=== PATIENT | male | born 1930 | race Caucasian/White ===

== ENCOUNTER 2019-03-10 02:45 | Inpatient (IN) | payer MEDICARE ==
[~2019-03-10] VITALS: Ht 175.3 cm; Wt 87.5 kg
[2019-03-10] VITALS (12 sets, daily range): BP systolic 118–202; BP diastolic 59–112
[2019-03-10] MEDS ORDERED: Aspirin Baby 81mg ORAL ONE (03:00)
[2019-03-10] MEDS ORDERED: Solu-MEDROL 125mg Inj IVP ONE (03:00)
[2019-03-10] MEDS ORDERED: Albuterol/Ipratropium 3ml neb HHN ONE (03:00)
[2019-03-10] MEDS ORDERED: Nitroglycerin Subl 0.4mg tab SL PRN ×2 (03:00→08:00)
--- NOTE | 2019-03-10 03:00 | NUR ---
ED Nurse Note: Pt came from home c/o chest pain and difficulty breathing since 1 hr. Pt stated pain in mid sternal area. Denies trauma. Wheezes heard. O2 >95% RA. Pt placed on monitor.
[2019-03-10 03:03] LABS: BASOPHILS % (AUTO) 0.7 % (0.0-2.0); EOSINOPHILS % (AUTO) 2.1 % (0.0-3.0); HEMATOCRIT 49.4 % (42.0-52.0); HEMOGLOBIN 15.8 G/DL (14.2-18.0); LYMPHOCYTES % (AUTO) 21.8 % (20.0-45.0); MEAN CORPUSCULAR VOLUME 92 FL (80-99); MONOCYTES % (AUTO) 7.8 % (1.0-10.0); NEUTROPHILS % (AUTO) 67.6 % (45.0-75.0); PLATELET COUNT 221 K/UL (150-450); RED CELL DISTRIBUTION WIDTH 13.5 % (11.6-14.8); WHITE BLOOD COUNT 10.9 K/UL (4.8-10.8)
--- NOTE | 2019-03-10 03:13 | Emergency Room Report ---
History of Present Illness General Chief Complaint: Chest Pain Source: Patient Present Illness HPI Patient is an 88-year-old male who presented after increased chest discomfort and shortness of breath. Patient had acute onset of symptoms approximate 1 hour prior to arrival. He had been noted to have increased nausea as well as chest tightness. He had some prior history of dementia. 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 He had no prior history of congestive heart failure or heart attack in the past. Patient had abrupt onset of shortness of breath Allergies: Coded Allergies: No Known Allergies (Unverified , 03/10/19) Patient History Past Medical History: see triage record Reviewed Nursing Documentation: PMH: Agreed; PSxH: Agreed Nursing Documentation-PMH Hx Cardiac Problems: Yes Hx Hypertension: Yes Hx COPD: Yes Review of Systems All Other Systems: limited - by acuity Physical Exam Vital Signs Date Time Temp Pulse Resp B/P (MAP) Pulse Ox O2 Delivery O2 Flow Rate FiO2 03/10/19 02:52 98.4 120 22 202/112 (142) 96 Room Air 03/10/19 03:00 2.0 28 General Appearance: alert, severe distress, obese Eyes: bilateral eye PERRL ENT: uvula midline Neck: limited range of motion Respiratory: accessory muscle use, wheezing Cardiovascular #1: tachycardia, edema - trace Gastrointestinal: normal inspection, normal bowel sounds, non tender, soft Musculoskeletal: normal inspection Neurologic: normal inspection, alert, oriented x3 Procedures Critical Care Time Critical Care Time Patient had a critical medical condition which untreated could potentially result in life or limb threatening injury. Total critical care time excluding procedures approximately 45 minutes. Medical Decision Making Diagnostic Impression: Primary Impression: Chest pain Additional Impressions: LBBB (left bundle branch block) Acute on chronic systolic (congestive) heart failure ER Course Patient presented for chest pain and shortness of breath. Differential diagnosis include was not limited to pneumonia, hypertensive crisis, acute myocardial infarction, congestive heart failure among others. Because of complexity of patient's case laboratory testing and imaging studies were ordered. EKG interpreted by me showed sinus tachycardia with a rate of 105 with a left bundle branch block pattern and ST elevation in the anterior leads. Patient was noted to be initially hypertensive. He is given aspirin. He was given breathing treatments due to some wheezing and difficulty respiration as well as IV steroids.Patient started on IV Lasix. Chest x-ray one view interpreted by me showed normal cardiac size with bilateral vascular congestion. Patient was noted to be initially markedly hypertensive. This improved after nitroglycerin and aspirin.Patient was also noted to have some improvement in his shortness of breath at that time. Patient was started on supplemental oxygen. Dr. Jessee Garcia was contacted for inpatient management due to panel physician. Labs Test 03/10/19 09:00 03/11/19 04:07 03/12/19 06:10 03/12/19 15:05 Urine Color Pale yellow Pale yellow Urine Appearance Clear Clear Urine pH 5 (4.5-8.0) 5 (4.5-8.0) Urine Specific [place] 1.010 (1.005-1.035) 1.005 (1.005-1.035) Urine Protein Negative (NEGATIVE) Negative (NEGATIVE) Urine Glucose (UA) Negative (NEGATIVE) Negative (NEGATIVE) Urine Ketones Negative (NEGATIVE) Negative (NEGATIVE) Urine Blood Negative (NEGATIVE) Negative (NEGATIVE) Urine Nitrite Negative (NEGATIVE) Negative (NEGATIVE) Urine Bilirubin Negative (NEGATIVE) Negative (NEGATIVE) Urine Urobilinogen Normal MG/DL (0.0-1.0) Normal MG/DL (0.0-1.0) Urine Leukocyte Esterase Negative (NEGATIVE) Negative (NEGATIVE) Urine RBC 0 /HPF (0 - 0) 0-2 /HPF (0 - 0) Urine WBC 0-2 /HPF (0 - 0) 0-2 /HPF (0 - 0) Urine Squamous Epithelial Cells Occasional /LPF None /LPF (NONE/OCC) Urine Bacteria Occasional /HPF (NONE) Few /HPF (NONE) Urine Eosinophils None seen (NONE SEEN) None seen (NONE SEEN) Urine Osmolality 368 mOsm/kg (429-449) 290 mOsm/kg (429-449) Urine Random Sodium 97 mmol/L (20-110) 68 mmol/L (20-110) White Blood Count 11.8 K/UL (4.8-10.8) 12.3 K/UL (4.8-10.8) Red Blood Count 4.93 M/UL (4.70-6.10) 4.68 M/UL (4.70-6.10) Hemoglobin 14.6 G/DL (14.2-18.0) 13.9 G/DL (14.2-18.0) Hematocrit 44.8 % (42.0-52.0) 42.7 % (42.0-52.0) Mean Corpuscular Volume 91 FL (80-99) 91 FL (80-99) Mean Corpuscular Hemoglobin 29.6 PG (27.0-31.0) 29.7 PG (27.0-31.0) Mean Corpuscular Hemoglobin Concent 32.6 G/DL (32.0-36.0) 32.5 G/DL (32.0-36.0) Red Cell Distribution Width 12.9 % (11.6-14.8) 13.3 % (11.6-14.8) Platelet Count 208 K/UL (150-450) 221 K/UL (150-450) Mean Platelet Volume 6.4 FL (6.5-10.1) 7.0 FL (6.5-10.1) Neutrophils (%) (Auto) % (45.0-75.0) 79.3 % (45.0-75.0) Lymphocytes (%) (Auto) % (20.0-45.0) 11.7 % (20.0-45.0) Monocytes (%) (Auto) % (1.0-10.0) 8.4 % (1.0-10.0) Eosinophils (%) (Auto) % (0.0-3.0) 0.1 % (0.0-3.0) Basophils (%) (Auto) % (0.0-2.0) 0.4 % (0.0-2.0) Differential Total Cells Counted 100 Neutrophils % (Manual) 92 % (45-75) Lymphocytes % (Manual) 6 % (20-45) Monocytes % (Manual) 2 % (1-10) Eosinophils % (Manual) 0 % (0-3) Basophils % (Manual) 0 % (0-2) Band Neutrophils 0 % (0-8) Platelet Estimate Adequate Platelet Morphology Normal Red Blood Cell Morphology Normal Sodium Level 139 MMOL/L (136-145) 141 MMOL/L (136-145) Potassium Level 4.0 MMOL/L (3.5-5.1) 4.1 MMOL/L (3.5-5.1) Chloride Level 104 MMOL/L (98-107) 104 MMOL/L (98-107) Carbon Dioxide Level 27 MMOL/L (21-32) 31 MMOL/L (21-32) Anion Gap 8 mmol/L (5-15) 6 mmol/L (5-15) Blood Urea Nitrogen 41 mg/dL (7-18) 44 mg/dL (7-18) Creatinine 1.6 MG/DL (0.55-1.30) 1.8 MG/DL (0.55-1.30) Estimat Glomerular Filtration Rate mL/min (>60) mL/min (>60) Glucose Level 174 MG/DL (74-106) 118 MG/DL (74-106) Calcium Level 9.0 MG/DL (8.5-10.1) 9.0 MG/DL (8.5-10.1) Total Bilirubin 0.6 MG/DL (0.2-1.0) Aspartate Amino Transf (AST/SGOT) 27 U/L (15-37) Alanine Aminotransferase (ALT/SGPT) 18 U/L (12-78) Alkaline Phosphatase 65 U/L (46-116) Troponin I 0.032 ng/mL (0.000-0.056) Pro-B-Type Natriuretic Peptide 4594 pg/mL (0-125) Total Protein 7.2 G/DL (6.4-8.2) Albumin 3.5 G/DL (3.4-5.0) Globulin 3.7 g/dL Albumin/Globulin Ratio 0.9 (1.0-2.7) Triglycerides Level 64 MG/DL (30-150) Cholesterol Level 251 MG/DL (< 200) LDL Cholesterol 170 mg/dL (<100) HDL Cholesterol 64 MG/DL (40-60) Cholesterol/HDL Ratio 3.9 (3.3-4.4) Uric Acid 8.4 MG/DL (2.6-7.2) Total Creatine Kinase 74 U/L (26-308) EKG Diagnostic Results Rate: tachycardiac Rhythm: NSR ST Segments: other - lef Last Vital Signs Date Time Temp Pulse Resp B/P (MAP) Pulse Ox O2 Delivery O2 Flow Rate FiO2 03/10/19 03:01 119 26 97 Nasal Cannula 2.0 28 03/10/19 02:58 202/112 03/10/19 02:52 98.4 Status: improved Disposition: ADMITTED INPATIENT Condition: Serious Roberto Loera MD Mar 10, 2019 03:13
[2019-03-10 03:14] LABS: ANION GAP 7 mmol/L (5-15); BLOOD UREA NITROGEN 30 mg/dL (7-18); CARBON DIOXIDE 26 MMOL/L (21-32); CHLORIDE 104 MMOL/L (98-107); CREATININE 1.6 MG/DL (0.55-1.30); POTASSIUM 4.3 MMOL/L (3.5-5.1); SODIUM 137 MMOL/L (136-145)
[2019-03-10] MEDS ORDERED: Albuterol/Ipratropium 3ml neb ONE (03:17)
[2019-03-10 03:28] LABS: ALANINE AMINOTRANSFERASE 11 U/L (12-78); ALBUMIN 3.9 G/DL (3.4-5.0); ALKALINE PHOSPHATASE 67 U/L (46-116); ASPARTATE AMINO TRANSFERASE 27 U/L (15-37); BILIRUBIN,TOTAL 0.6 MG/DL (0.2-1.0); CKMB 3.6 NG/ML (0.0-3.6); CREATINE KINASE 202 U/L (26-308)
--- NOTE | 2019-03-10 05:00 | NUR ---
ED Nurse Note: Pt resting in bed with eyes closed, non-labored breathing, no signs of distress, VSS. Will continue to monitor.
--- NOTE | 2019-03-10 06:50 | NUR ---
TRANSFER TO FLOOR: Patient transferred to as ordered, per Dr Garcia. Report given to BHAVESH Salguero. Belongings and medications given to . Family and or S/O informed of transfer.
--- NOTE | 2019-03-10 07:05 | NUR ---
NURSE NOTES: Received patient from BHAVESH Loza from ED. patient is in stable condition. AOx2-3, responsive to verbal commands. denies pain at this time. patient is currently on room air, with no s/sx of respiratory distress noted at this time. rn ostomy placed, showing NSR currently, no s/sx of acute cardiac distress noted at this time. IV site is patent and intact. skin is intact. belongings reviewed and placed at patient's bedside. bed in lowest position and locked, siderails up X3, call light within reach. Vital signs stable. will endorse to day shift nurse for continuity of care.
[2019-03-10] MEDS ORDERED: Morphine Sulfate 2mg/ml Inj(IV/IM USE ONLY) IVP PRN (07:45)
[2019-03-10] MEDS ORDERED: Albuterol/Ipratropium 3ml neb HHN PRN (07:45)
[2019-03-10] MEDS ORDERED: Promethazine/Codeine 5ml UD ORAL PRN (07:45)
[2019-03-10] MEDS ORDERED: LORazepam Inj 2mg/ml 1ml IV PRN (07:45)
--- NOTE | 2019-03-10 07:48 | NUR ---
HAND-OFF: Report given to BHAVESH Barrow. patient is in stable condition.
--- NOTE | 2019-03-10 07:49 | NUR ---
NURSE NOTES: Received patient in bed. Asleep, easy to arouse. Call light within reach, bed in lowest position. Patient is verbal, denies any pain. On room air. No respiratory distress. Will continue plan of care.
[2019-03-10 08:18] LABS: CREATINE KINASE 184 U/L (26-308)
[2019-03-10] MEDS: Theophylline ER 100mg ORAL SCH ×2 (09:22→20:59)
[2019-03-10] MEDS: Heparin 5000 units/ml inj SUBQ SCH ×2 (09:23→20:59)
[2019-03-10] MEDS: Zosyn 3.375gm q12h **Extended infusion IVPB SCH ×4 (09:23→20:58)
[2019-03-10 10:01] LABS: APPEARANCE,URINE CLEAR; BILIRUBIN, URINE NEGATIVE (NEGATIVE); COLOR,URINE PALE YELLOW; GLUCOSE, URINE (UA) NEGATIVE (NEGATIVE); KETONES,URINE NEGATIVE (NEGATIVE); LEUKOCYTE ESTERASE ,URINE NEGATIVE (NEGATIVE); NITRITE,URINE NEGATIVE (NEGATIVE); PH,URINE 5 (4.5-8.0); PROTEIN,URINE NEGATIVE (NEGATIVE); UROBILINOGEN,URINE NORMAL MG/DL (0.0-1.0)
--- NOTE | 2019-03-10 10:29 | Consultation ---
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 Symptoms started about 1 hour prior to arrival to ED. Patient also reported increased nausea with chest tightness. Patient was unable to provide good history secondary to dementia. He denied, however, history of CHF or heart attack in the past. Upon evaluation vital signs revealed tachycardia , tachypnea and severely elevated blood pressure 202/112. Pulse oximetry was stable on 2 L of oxygen via nasal cannula. Laboratory work-up revealed evidence of renal failure with BUN of 30 creatinine 1.6. Troponin 0.006, proBNP 2113. EKG revealed sinus tachycardia with left bundle branch block. No leukocytosis, stable hemoglobin and hematocrit. Urinalysis revealed no evidence of UTI. Chest x-ray demonstrated evidence of congestive heart failure. Patient received aspirin and nitroglycerin in emergency department , nebulizing treatment with bronchodilator, 1 dose of Lasix and admitted to [facility] for further management. Allergies: Coded Allergies: No Known Allergies (Unverified , 03/10/19) Medication History Scheduled Tamsulosin HCl (Flomax), 0 DAILY, (Reported) Miscellaneous Medications Aspirin (Aspirin), 0, (Reported) Citalopram Hydrobromide (Citalopram Hbr), 0, (Reported) Patient History Limited by: medical condition History Provided By: Patient, Medical Record Healthcare decision maker Resuscitation status Advanced Directive on File Past Medical/Surgical History Past Medical/Surgical History: (1) Valvular heart disease (2) COPD (chronic obstructive pulmonary disease) (3) Dementia (4) HTN (hypertension) Review of Systems ROS Narrative ROS unavailable due to patient medical condition/dementia. Physical Exam General Appearance: alert - forgetful male in NAD Lines, tubes and drains: peripheral HEENT: normocephalic, atraumatic, anicteric, mucous membranes moist, PERRL Neck: normal inspection Respiratory/Chest: no respiratory distress, no accessory muscle use, decreased breath sounds Cardiovascular/Chest: normal peripheral pulses, regular rhythm - SR Abdomen: normal bowel sounds, non tender, soft Extremities: no edema Skin Exam: warm/dry, no diaphoresis Neurologic: abnormal gait, alert, responsive - forgetful , other - moves all extremities Musculoskeletal: atrophy - BLE Last 24 Hour Vital Signs Date Time Temp Pulse Resp B/P (MAP) Pulse Ox O2 Delivery O2 Flow Rate FiO2 03/10/19 08:00 97.8 76 20 148/74 (98) 93 03/10/19 07:05 97.8 83 20 138/68 (91) 95 03/10/19 06:50 98.4 96 19 121/63 95 Nasal Cannula 2.0 28 03/10/19 04:53 98.4 96 19 121/63 95 Nasal Cannula 2.0 28 03/10/19 04:30 98.4 102 26 118/65 95 Nasal Cannula 2.0 28 03/10/19 04:25 98.4 112 26 138/59 95 Nasal Cannula 2.0 28 03/10/19 04:20 98.4 98 26 136/64 95 Nasal Cannula 2.0 28 03/10/19 04:15 98.4 100 26 127/61 95 Nasal Cannula 2.0 28 03/10/19 04:10 98.4 105 26 141/96 95 Nasal Cannula 2.0 28 03/10/19 03:20 67 22 95 Nasal Cannula 2.0 28 03/10/19 03:12 96 22 96 Nasal Cannula 2.0 03/10/19 03:01 119 26 97 Nasal Cannula 2.0 03/10/19 03:00 119 26 97 Nasal Cannula 2.0 03/10/19 03:00 98.4 105 26 202/112 97 Nasal Cannula 2.0 03/10/19 03:00 119 26 Nasal Cannula 2.0 03/10/19 02:58 202/112 03/10/19 02:52 98.4 120 22 202/112 (142) 96 Room Air Laboratory Tests Test 03/10/19 02:50 03/10/19 04:40 03/10/19 05:00 03/10/19 09:00 White Blood Count 10.9 K/UL (4.8-10.8) H Red Blood Count 5.40 M/UL (4.70-6.10) Hemoglobin 15.8 G/DL (14.2-18.0) Hematocrit 49.4 % (42.0-52.0) Mean Corpuscular Volume 92 FL (80-99) Mean Corpuscular Hemoglobin 29.3 PG (27.0-31.0) Mean Corpuscular Hemoglobin Concent 32.0 G/DL (32.0-36.0) Red Cell Distribution Width 13.5 % (11.6-14.8) Platelet Count 221 K/UL (150-450) Mean Platelet Volume 6.0 FL (6.5-10.1) L Neutrophils (%) (Auto) 67.6 % (45.0-75.0) Lymphocytes (%) (Auto) 21.8 % (20.0-45.0) Monocytes (%) (Auto) 7.8 % (1.0-10.0) Eosinophils (%) (Auto) 2.1 % (0.0-3.0) Basophils (%) (Auto) 0.7 % (0.0-2.0) Sodium Level 137 MMOL/L (136-145) Potassium Level 4.3 MMOL/L (3.5-5.1) Chloride Level 104 MMOL/L (98-107) Carbon Dioxide Level 26 MMOL/L (21-32) Anion Gap 7 mmol/L (5-15) Blood Urea Nitrogen 30 mg/dL (7-18) H Creatinine 1.6 MG/DL (0.55-1.30) H Estimat Glomerular Filtration Rate mL/min (>60) Glucose Level 134 MG/DL (74-106) H Calcium Level 9.0 MG/DL (8.5-10.1) Total Bilirubin 0.6 MG/DL (0.2-1.0) Aspartate Amino Transf (AST/SGOT) 27 U/L (15-37) Alanine Aminotransferase (ALT/SGPT) 11 U/L (12-78) L Alkaline Phosphatase 67 U/L (46-116) Total Creatine Kinase 202 U/L (26-308) 184 U/L (26-308) Creatine Kinase MB 3.6 NG/ML (0.0-3.6) Creatine Kinase MB Relative Index 1.7 Troponin I 0.006 ng/mL (0.000-0.056) 0.007 ng/mL (0.000-0.056) Pro-B-Type Natriuretic Peptide 2113 pg/mL (0-125) H Total Protein 7.7 G/DL (6.4-8.2) Albumin 3.9 G/DL (3.4-5.0) Globulin 3.8 g/dL Albumin/Globulin Ratio 1.0 (1.0-2.7) Lipase 221 U/L (73-393) Uric Acid 8.9 MG/DL (2.6-7.2) H Urine Color Pale yellow Urine Appearance Clear Urine pH 5 (4.5-8.0) Urine Specific [place] 1.010 (1.005-1.035) Urine Protein Negative (NEGATIVE) Urine Glucose (UA) Negative (NEGATIVE) Urine Ketones Negative (NEGATIVE) Urine Blood Negative (NEGATIVE) Urine Nitrite Negative (NEGATIVE) Urine Bilirubin Negative (NEGATIVE) Urine Urobilinogen Normal MG/DL (0.0-1.0) Urine Leukocyte Esterase Negative (NEGATIVE) Urine RBC 0 /HPF (0 - 0) Urine WBC 0-2 /HPF (0 - 0) Urine Squamous Epithelial Cells Occasional /LPF Urine Bacteria Occasional /HPF (NONE) Urine Eosinophils Pending Urine Osmolality Pending Urine Random Creatinine Pending Urine Random Microalbumin Pending Urine Random Sodium 97 mmol/L (20-110) Urine Microalbumin/Creatinine Ratio Pending Height (Feet): 5 Height (Inches): 9.00 Weight (Pounds): 170 Medications Current Medications Medications (Trade) Dose Ordered Sig/Barbara Route PRN Reason Start Time Stop Time Status Last Admin Dose Admin Albuterol/ Ipratropium (Albuterol/ Ipratropium) 3 ml Q4H PRN HHN dyspnea 03/10/19 07:45 03/15/19 07:44 Dextrose (Dextrose 50%) 25 ml Q30M PRN IV Hypoglycemia 03/10/19 07:45 04/09/19 07:44 Dextrose (Dextrose 50%) 50 ml Q30M PRN IV Hypoglycemia 03/10/19 07:45 04/09/19 07:44 Heparin Sodium (Porcine) (Heparin 5000 units/ml) 5,000 units EVERY 12 HOURS SUBQ 03/10/19 09:00 04/09/19 08:59 03/10/19 09:23 Lorazepam (Ativan 2mg/ml 1ml) 0.5 mg Q4H PRN IV For Anxiety 03/10/19 07:45 03/17/19 07:44 Methylprednisolone Sodium Succinate (Solu-MEDROL) 60 mg EVERY 6 HOURS IV 03/10/19 12:00 04/09/19 11:59 Morphine Sulfate (Morphine Sulfate) 2 mg Q4H PRN IVP Severe Pain (Pain Scale 7-10) 03/10/19 07:45 03/17/19 07:44 Nitroglycerin (Ntg) 0.4 mg Q5MIN X 3 DOSES PRN SL Prn Chest Pain 03/10/19 08:00 04/09/19 07:59 Ondansetron HCl (Zofran) 4 mg Q6H PRN IVP Nausea & Vomiting 03/10/19 07:45 04/09/19 07:44 Piperacillin Sod/ Tazobactam Sod 3.375 gm/Sodium Chloride 110 ml @ 27.5 mls/hr EVERY 12 HOURS IVPB 03/10/19 09:00 03/15/19 08:59 03/10/19 09:23 Promethazine HCl/ Codeine (Phenergan with Codeine) 5 ml Q6H PRN ORAL cough 03/10/19 07:45 04/09/19 07:44 Temazepam (Restoril) 15 mg HSPRN PRN ORAL Insomnia 03/10/19 21:00 03/17/19 20:59 Theophylline (Zhao-Dur) 100 mg EVERY 12 HOURS ORAL 03/10/19 09:00 04/09/19 08:59 03/10/19 09:22 Assessment/Plan Status Narrative ASSESSMENT Chest pain, rule out acute coronary syndrome Hypertensive urgency( POA, resolved) Probably COPD exacerbation R/o PNA Valvular heart disease due to rheumatic fever Acute kidney injury Dementia PLAN OF CARE Serial troponin x2 negative, EKG no acute ischemic changes patient was r/o for acute ME started on aspirin and beta-robert closely monitor BP ECHO pending lipid panel pain management O2 titrate prn, HHN low-dose of steroids and taper soon antitussive prn fup with CXR empiric abx, f/up with cx trial of theophylline DVT , GI prophylaxis monitor renal parameters , electrolytes; correct electrolytes as needed, void nephrotoxic renal US transfer to tele case discussed and evaluated by supervising physician Corazon Kumar NP Mar 10, 2019 10:29
--- NOTE | 2019-03-10 10:50 | Diagnostic Imaging Report ---
Indication: Dyspnea Comparison: None A single view chest radiograph was obtained. Findings: Pulmonary vascular congestion demonstrated with cardiomegaly. No definite pleural effusions are identified. The bones are osteopenic. IMPRESSION: Congestive heart failure
--- NOTE | 2019-03-10 11:35 | Diagnostic Imaging Report ---
Indication:Elevated Bun and Creatinine. Technique: Grayscale and duplex Doppler imaging of the kidneys performed. Comparison: None Findings: There is some limitation on this study due to bowel gas. The size, contour, and echogenicity of both kidneys are within normal limits. There is no hydronephrosis. The IVC is patent by color flow. The urinary bladder is distended. Right kidney measures 11.7 cm in length. Left kidney 8.5 cm in length. IMPRESSION: Negative evaluation of the kidneys. Left kidney is borderline small. Distended urinary bladder
--- NOTE | 2019-03-10 11:48 | NUR ---
NURSE NOTES: Spoke with patient's son via telephone, and he said that patient's medications at home are Flomax, ASA and citalopram.
[2019-03-10] MEDS ORDERED: Solu-MEDROL 125mg Inj IV SCH (12:00)
--- NOTE | 2019-03-10 12:30 | NUR ---
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 Documented on patient's belongings list.
--- NOTE | 2019-03-10 13:00 | NUR ---
NURSE NOTES: Dr. Dotson made aware regarding patient's 2D echo result, EF of 25-30%. Dr. Dotson said he will asses patient and check the chart.
[2019-03-10] MEDS ORDERED: Piperacillin/Tazobactam 2.25 GM in D5W 55 ML IV SCH (14:00)
--- NOTE | 2019-03-10 14:36 | Cardiac Electrophysiology PN ---
Subjective Subjective [id number] Objective Last 24 Hour Vital Signs Date Time Temp Pulse Resp B/P (MAP) Pulse Ox O2 Delivery O2 Flow Rate FiO2 03/10/19 12:00 97.7 80 20 140/86 (104) 94 03/10/19 11:35 72 03/10/19 08:00 97.8 76 20 148/74 (98) 93 03/10/19 08:00 75 03/10/19 07:53 Room Air 03/10/19 07:05 97.8 83 20 138/68 (91) 95 03/10/19 06:50 98.4 96 19 121/63 95 Nasal Cannula 2.0 28 03/10/19 04:53 98.4 96 19 121/63 95 Nasal Cannula 2.0 28 03/10/19 04:30 98.4 102 26 118/65 95 Nasal Cannula 2.0 28 03/10/19 04:25 98.4 112 26 138/59 95 Nasal Cannula 2.0 28 03/10/19 04:20 98.4 98 26 136/64 95 Nasal Cannula 2.0 28 03/10/19 04:15 98.4 100 26 127/61 95 Nasal Cannula 2.0 28 03/10/19 04:10 98.4 105 26 141/96 95 Nasal Cannula 2.0 28 03/10/19 03:20 67 22 95 Nasal Cannula 2.0 28 03/10/19 03:12 96 22 96 Nasal Cannula 2.0 28 03/10/19 03:01 119 26 97 Nasal Cannula 2.0 28 03/10/19 03:00 119 26 97 Nasal Cannula 2.0 28 03/10/19 03:00 98.4 105 26 202/112 97 Nasal Cannula 2.0 28 03/10/19 03:00 119 26 Nasal Cannula 2.0 28 03/10/19 02:58 202/112 03/10/19 02:52 98.4 120 22 202/112 (142) 96 Room Air Laboratory Tests Test 03/10/19 02:50 03/10/19 04:40 03/10/19 05:00 03/10/19 09:00 White Blood Count 10.9 K/UL (4.8-10.8) H Red Blood Count 5.40 M/UL (4.70-6.10) Hemoglobin 15.8 G/DL (14.2-18.0) Hematocrit 49.4 % (42.0-52.0) Mean Corpuscular Volume 92 FL (80-99) Mean Corpuscular Hemoglobin 29.3 PG (27.0-31.0) Mean Corpuscular Hemoglobin Concent 32.0 G/DL (32.0-36.0) Red Cell Distribution Width 13.5 % (11.6-14.8) Platelet Count 221 K/UL (150-450) Mean Platelet Volume 6.0 FL (6.5-10.1) L Neutrophils (%) (Auto) 67.6 % (45.0-75.0) Lymphocytes (%) (Auto) 21.8 % (20.0-45.0) Monocytes (%) (Auto) 7.8 % (1.0-10.0) Eosinophils (%) (Auto) 2.1 % (0.0-3.0) Basophils (%) (Auto) 0.7 % (0.0-2.0) Sodium Level 137 MMOL/L (136-145) Potassium Level 4.3 MMOL/L (3.5-5.1) Chloride Level 104 MMOL/L (98-107) Carbon Dioxide Level 26 MMOL/L (21-32) Anion Gap 7 mmol/L (5-15) Blood Urea Nitrogen 30 mg/dL (7-18) H Creatinine 1.6 MG/DL (0.55-1.30) H Estimat Glomerular Filtration Rate mL/min (>60) Glucose Level 134 MG/DL (74-106) H Calcium Level 9.0 MG/DL (8.5-10.1) Total Bilirubin 0.6 MG/DL (0.2-1.0) Aspartate Amino Transf (AST/SGOT) 27 U/L (15-37) Alanine Aminotransferase (ALT/SGPT) 11 U/L (12-78) L Alkaline Phosphatase 67 U/L (46-116) Total Creatine Kinase 202 U/L (26-308) 184 U/L (26-308) Creatine Kinase MB 3.6 NG/ML (0.0-3.6) Creatine Kinase MB Relative Index 1.7 Troponin I 0.006 ng/mL (0.000-0.056) 0.007 ng/mL (0.000-0.056) Pro-B-Type Natriuretic Peptide 2113 pg/mL (0-125) H Total Protein 7.7 G/DL (6.4-8.2) Albumin 3.9 G/DL (3.4-5.0) Globulin 3.8 g/dL Albumin/Globulin Ratio 1.0 (1.0-2.7) Lipase 221 U/L (73-393) Uric Acid 8.9 MG/DL (2.6-7.2) H Urine Color Pale yellow Urine Appearance Clear Urine pH 5 (4.5-8.0) Urine Specific [place] 1.010 (1.005-1.035) Urine Protein Negative (NEGATIVE) Urine Glucose (UA) Negative (NEGATIVE) Urine Ketones Negative (NEGATIVE) Urine Blood Negative (NEGATIVE) Urine Nitrite Negative (NEGATIVE) Urine Bilirubin Negative (NEGATIVE) Urine Urobilinogen Normal MG/DL (0.0-1.0) Urine Leukocyte Esterase Negative (NEGATIVE) Urine RBC 0 /HPF (0 - 0) Urine WBC 0-2 /HPF (0 - 0) Urine Squamous Epithelial Cells Occasional /LPF Urine Bacteria Occasional /HPF (NONE) Urine Eosinophils None seen (NONE SEEN) Urine Osmolality 368 mOsm/kg (429-449) L Urine Random Creatinine Pending Urine Random Microalbumin Pending Urine Random Sodium 97 mmol/L (20-110) Urine Microalbumin/Creatinine Ratio Pending Eric Dotson MD Mar 10, 2019 14:36
--- NOTE | 2019-03-10 17:15 | History and Physical Report ---
DATE OF ADMISSION: 03/10/2019 DATE AND TIME SEEN: On 03/10/2019 at 12 noon. CONSULTANTS: 1. Nati Jeff M.D. 2. Eric Dotson M.D. CHIEF COMPLAINT: Chest pain, shortness of breath. BRIEF HISTORY: This is an 88-year-old male, who lives at home, presented with increased slight chest pain and slight short of breath. It was dull. No radiation. No loss of consciousness. Slight short of breath. The patient came in, diagnosed with chest pain and left bundle-branch block, and admitted to step-down unit for further care. Currently, calm in bed, slight chest pain, no complaint. REVIEW OF SYSTEMS: Slight chest pain. Slight short of breath. No nausea, vomiting, or diarrhea. PAST MEDICAL HISTORY: Includes CHF. PAST SURGICAL HISTORY: None. ALLERGIES: Denies. MEDICATIONS: Include aspirin, pantoprazole, temazepam, methylprednisolone, metoprolol, heparin, Zosyn, morphine, Zofran. SOCIAL HISTORY: No smoke. No alcohol. No intravenous drug abuse. FAMILY HISTORY: Noncontributory. PHYSICAL EXAMINATION: GENERAL: Calm in bed, oriented x2, in no acute distress. VITAL SIGNS: Temperature 97, pulse 80, respirations 20, and blood pressure 140/86. CARDIOVASCULAR: No murmur. LUNGS: Poor air exchange. ABDOMEN: Bowel sounds distant. EXTREMITIES: No cyanosis or edema. NEUROLOGIC: The patient moves all extremities, slightly weak. LABORATORY AND DIAGNOSTIC DATA: Labs at this time show white count 10.9, otherwise CBC is normal. BMP shows BUN and creatinine 30/1.6, glucose 134. Troponin 0.006. BNP is 2113. Urinalysis shows there is negative. ASSESSMENT: Chest pain, short of breath, left bundle-branch block, CHF. PLAN: O2, pulmonary treatment. OT dietary evaluation. Pain control. Resume home medications. We will continue to follow this patient. Jessee Garcia D.O. DR: Floresita JOB#: [id number] CC:
[2019-03-10] MEDS: HydrALAZINE 10mg Tab ORAL SCH (17:54)
--- NOTE | 2019-03-10 19:15 | NUR ---
HAND-OFF: Report given to BHAVESH Wilson.
--- NOTE | 2019-03-10 19:16 | NUR ---
NURSE NOTES: Report received from BHAVESH Barrow. Observed pt lying in bed. A/O x 3. Pt is forgetful and trying to get up with weak gait. SR with lance crewmember/mlrs sergeant. On room air with no signs of SOB. Abd soft, round, and non-tender. IV on R W 20G, intact and patent. Bed in the lowest position. Side rails up x3. Call light within reach. Will continue to monitor.
--- NOTE | 2019-03-10 20:30 | NUR ---
NURSE NOTES: Noted pt is confused, A/O x2. Pt keeps trying to get up with unsteady gait. Re-orientation done x3. Pt forgets everything told within 10 mins. Bed locked, alarmed, and in the lowest position. Side rails up x3. Call light within reach. Will continue to monitor.
--- NOTE | 2019-03-10 20:45 | Consultation ---
DATE OF CONSULTATION: 03/10/2019 CARDIOLOGY CONSULTATION CONSULTING PHYSICIAN: Eric Dotson M.D. REFERRING PHYSICIAN: Jessee Garcia D.O. REASON FOR CONSULTATION: Chest pain and shortness of breath in the patient with complete left bundle-branch block and ejection fraction of only 25%. HISTORY OF PRESENT ILLNESS: The patient is an 88-year-old gentleman with history of hypertension and chronic obstructive pulmonary disease and valvular heart disease, secondary to rheumatic fever, presented to the emergency room for increasing shortness of breath and chest discomfort and lower extremity edema. The patient also has history of mild dementia. The patient's blood pressure was 202/112 in the ER and received oxygen. BNP is more than 2000 as well. Cardiac Electrophysiology consultation was obtained for further evaluation and management. REVIEW OF SYSTEMS: Review of systems was negative other than what was mentioned in the history of present illness. PAST MEDICAL HISTORY: As mentioned above. FAMILY HISTORY: Noncontributory. SOCIAL HISTORY: He is from [place], visiting his son in [place]. Does not smoke or drink alcohol. PHYSICAL EXAMINATION: VITAL SIGNS: Show blood pressure of 140/86, pulse 80, respirations 18, and temperature 97.7. HEAD AND NECK: Shows positive JVD. LUNGS: Showed decreased breath sounds. CARDIOVASCULAR: Shows regular S1 and S2 with no gallop with 2/6 systolic murmur. ABDOMEN: Soft. EXTREMITIES: 2+ pitting edema. LABORATORY AND DIAGNOSTIC DATA: His echocardiogram showed ejection fraction of 25 to 30% with [id number] aortic regurgitation. His EKG shows sinus rhythm with left bundle-branch block and first-degree AV block with ND interval of 232 milliseconds. His labs show white count of 11, hemoglobin 15, hematocrit of 49, and platelets of 221. Sodium 137, potassium 4.3, BUN of 30, creatinine 1.6, and glucose of 134. Troponin is negative x2. BNP 2113. ASSESSMENT AND PLAN: 1. Chest pain. Even though the patient has left bundle-branch block, he was already ruled out for myocardial infarction with serial cardiac enzymes. This is likely due to the patient's congestive heart failure. 2. Congestive heart failure. BNP of more than 2000 and ejection fraction of only 25%. The patient also has complete left bundle-branch block. This patient would need cardiac catheterization for further evaluation of his coronaries. We will watch him on telemetry and treat his heart failure first before transferred for cardiac catheterization. In the meantime, I will put him on Coreg, Lasix, hydralazine, and nitrate. At this time, we will hold off on EVELINA inhibitor in view of renal failure with creatinine of 1.6. 3. Renal failure. Creatinine 1.6. CK is not clear. 4. COPD, on Solu-Medrol antibiotics. 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 Cardiac catheterization will be done after the patient is more stabilized. Thank you very much, Dr. Garcia, for allowing me to participate in the care of this patient. Please do not hesitate to contact me if you have any questions regarding my evaluation. Sincerely, Eric Dotson M.D. DR: FABI JOB#: [id number] CC:
[2019-03-10] MEDS: Carvedilol 12.5mg tab ORAL SCH (20:59)
[2019-03-10] MEDS: Solu-MEDROL 40mg Inj IVP SCH (21:00)
[2019-03-10] MEDS ORDERED: Metoprolol 25mg tab ORAL SCH (21:00)
--- NOTE | 2019-03-10 22:30 | NUR ---
NURSE NOTES: Pt is confused and agitated. Pt tries to get out of bed with unsteady gait. PRN med given. Bed locked and alarmed in the lowest position. Side rails up x3. Call light within reach. Will continue to monitor.
--- NOTE | 2019-03-11 00:19 | NUR ---
NURSE NOTES: Pt refused to use urinal and went to bathroom with assistance, unsteady gait. Pt is confused and refused to take vitals. Explained benefits and risks and still refused. SR with threat monitoring analyst noted. No signs of SOB. No acute distress noted at this time. Will continue to monitor.
--- NOTE | 2019-03-11 02:49 | NUR ---
NURSE NOTES: PT woke up and tried to get out of the bed by himself. Teach pt to press the call light before getting up again. Pt is confused and re-orientation done. Will continue to monitor.
[2019-03-11 04:00] VITALS: BP 149/68
[2019-03-11 06:09] LABS: HEMATOCRIT 44.8 % (42.0-52.0); HEMOGLOBIN 14.6 G/DL (14.2-18.0); MEAN CORPUSCULAR VOLUME 91 FL (80-99); PLATELET COUNT 208 K/UL (150-450); RED BLOOD COUNT 4.93 M/UL (4.70-6.10); RED CELL DISTRIBUTION WIDTH 12.9 % (11.6-14.8); WHITE BLOOD COUNT 11.8 K/UL (4.8-10.8)
[2019-03-11 06:40] LABS: ALANINE AMINOTRANSFERASE 18 U/L (12-78); ALBUMIN 3.5 G/DL (3.4-5.0); ALBUMIN/GLOBULIN RATIO 0.9 (1.0-2.7); ALKALINE PHOSPHATASE 65 U/L (46-116); ANION GAP 8 mmol/L (5-15); ASPARTATE AMINO TRANSFERASE 27 U/L (15-37); BILIRUBIN,TOTAL 0.6 MG/DL (0.2-1.0); BLOOD UREA NITROGEN 41 mg/dL (7-18); CARBON DIOXIDE 27 MMOL/L (21-32); CHLORIDE 104 MMOL/L (98-107); CHOLESTEROL 251 MG/DL (< 200); CREATININE 1.6 MG/DL (0.55-1.30); HDL CHOLESTEROL 64 MG/DL (40-60); SODIUM 139 MMOL/L (136-145); TRIGLYCERIDES 64 MG/DL (30-150)
--- NOTE | 2019-03-11 07:00 | NUR ---
HAND-OFF: Report given to BHAVESH Dos Santos. No acute distress noted at this time.
--- NOTE | 2019-03-11 07:12 | NUR ---
NURSE NOTES: Received report from BHAVESH Whitney. Patient is resting in bed, in stable condition. No s/sx of SOB, breathing is even and unlabored, BIPAP settings are as ordered. Observed no presence of pain or discomfort at this time. Bed is in lowest position, brakes engaged. Call light is kept within easy reach. Will continue to monitor patient. Addendum: 03/11/19 at 0714 by RENETTA ANGELES RN NURSE NOTES: Corrections: patient is not on BIPAP, patient is on room air. Noted.
--- NOTE | 2019-03-11 07:57 | Pulmonology Progress Note ---
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 advance BB -per cardio monitor volumes and renal parameters hold EVELINA due to JANELLE lipid panel with hypercholesteremia ( elevated TC and LDL), add statin pain management O2 titrate prn, HHN low-dose of steroids and taper soon antitussive prn fup with CXR 03/11 -improvement in pulmonary vascular congestion empiric abx, f/up with cx trial of theophylline DVT , GI prophylaxis monitor renal parameters , electrolytes; correct electrolytes as needed, avoid nephrotoxic renal US no hydro, normal bilateral kidney echogenicity transfer to tele case discussed and evaluated by supervising physician Subjective Allergies: Coded Allergies: No Known Allergies (Unverified , 03/10/19) Subjective denies chest pain, SOB working with PT, pulse ox stable on RA Objective Last 24 Hour Vital Signs Date Time Temp Pulse Resp B/P (MAP) Pulse Ox O2 Delivery O2 Flow Rate FiO2 03/11/19 04:00 97.6 60 20 149/68 (95) 98 03/11/19 04:00 59 03/11/19 00:00 82 03/11/19 00:00 67 03/10/19 21:00 Room Air 03/10/19 20:59 77 141/72 03/10/19 20:00 82 03/10/19 20:00 85 20 97 Nasal Cannula 2.0 28 03/10/19 20:00 97.2 77 20 141/72 (95) 98 03/10/19 17:54 140/86 03/10/19 16:00 96.8 82 20 134/91 (105) 92 03/10/19 15:28 80 03/10/19 12:00 97.7 80 20 140/86 (104) 94 03/10/19 11:35 72 03/10/19 08:00 97.8 76 20 148/74 (98) 93 03/10/19 08:00 75 Intake and Output 03/10/19 03/11/19 18:59 06:59 Intake Total 360 ml 240 ml Output Total 1200 ml Balance -840 ml 240 ml Intake Oral 360 ml 240 ml Output Urine Total 1200 ml # Voids 3 # Bowel Movements 1 Objective General Appearance: alert but forgetful and confused male in NAD Lines, tubes and drains: peripheral HEENT: normocephalic, atraumatic, anicteric, mucous membranes moist, PERRL Neck: normal inspection Respiratory/Chest: no respiratory distress, no accessory muscle use, decreased breath sounds Cardiovascular/Chest: normal peripheral pulses, regular rhythm - SR Abdomen: normal bowel sounds, non tender, soft Extremities: no edema Skin Exam: warm/dry, no diaphoresis, multiple brown age related spots on the back Neurologic: abnormal gait, alert, responsive - forgetful , moves all extremities Musculoskeletal: atrophy - BLE Laboratory Tests 03/10/19 09:00: Urine Color Pale yellow, Urine Appearance Clear, Urine pH 5, Urine Specific [place] 1.010, Urine Protein Negative, Urine Glucose (UA) Negative, Urine Ketones Negative, Urine Blood Negative, Urine Nitrite Negative, Urine Bilirubin Negative, Urine Urobilinogen Normal, Urine Leukocyte Esterase Negative, Urine RBC 0, Urine WBC 0-2, Urine Squamous Epithelial Cells Occasional, Urine Bacteria Occasional, Urine Eosinophils None seen, Urine Osmolality 368L, Urine Random Creatinine [Pending], Urine Random Microalbumin [Pending], Urine Random Sodium 97, Urine Microalbumin/Creatinine Ratio [Pending] 03/11/19 04:07: White Blood Count 11.8H, Red Blood Count 4.93, Hemoglobin 14.6, Hematocrit 44.8 , Mean Corpuscular Volume 91, Mean Corpuscular Hemoglobin 29.6, Mean Corpuscular Hemoglobin Concent 32.6, Red Cell Distribution Width 12.9, Platelet Count 208, Mean Platelet Volume 6.4L, Neutrophils (%) (Auto) , Lymphocytes (%) ( Auto) , Monocytes (%) (Auto) , Eosinophils (%) (Auto) , Basophils (%) (Auto) , Neutrophils % (Manual) [Pending], Lymphocytes % (Manual) [Pending], Platelet Estimate [Pending], Platelet Morphology [Pending], Sodium Level 139, Potassium Level 4.0, Chloride Level 104, Carbon Dioxide Level 27, Anion Gap 8, Blood Urea Nitrogen 41H, Creatinine 1.6H, Estimat Glomerular Filtration Rate , Glucose Level 174H, Calcium Level 9.0, Total Bilirubin 0.6, Aspartate Amino Transf (AST/ SGOT) 27, Alanine Aminotransferase (ALT/SGPT) 18, Alkaline Phosphatase 65, Troponin I 0.032, Pro-B-Type Natriuretic Peptide 4594H, Total Protein 7.2, Albumin 3.5, Globulin 3.7, Albumin/Globulin Ratio 0.9L, Triglycerides Level 64, Cholesterol Level 251H, LDL Cholesterol 170H, HDL Cholesterol 64H, Cholesterol/ HDL Ratio 3.9 Current Medications Medications (Trade) Dose Ordered Sig/Barbara Route PRN Reason Start Time Stop Time Status Last Admin Dose Admin Albuterol/ Ipratropium (Albuterol/ Ipratropium) 3 ml Q4H PRN HHN dyspnea 03/10/19 07:45 03/15/19 07:44 Aspirin (Ecotrin) 81 mg DAILY ORAL 03/11/19 09:00 04/10/19 08:59 Carvedilol (Coreg) 12.5 mg EVERY 12 HOURS ORAL 03/10/19 21:00 04/09/19 20:59 03/10/19 20:59 Dextrose (Dextrose 50%) 25 ml Q30M PRN IV Hypoglycemia 03/10/19 07:45 04/09/19 07:44 Dextrose (Dextrose 50%) 50 ml Q30M PRN IV Hypoglycemia 03/10/19 07:45 04/09/19 07:44 Furosemide (Lasix) 40 mg EVERY 12 HOURS IV 03/10/19 21:00 04/09/19 20:59 03/10/19 21:00 Heparin Sodium (Porcine) (Heparin 5000 units/ml) 5,000 units EVERY 12 HOURS SUBQ 03/10/19 09:00 04/09/19 08:59 03/10/19 09:23 Hydralazine HCl (Apresoline) 10 mg BID ORAL 03/10/19 18:00 04/09/19 17:59 03/10/19 17:54 Isosorbide Mononitrate (Imdur) 30 mg DAILY ORAL 03/11/19 09:00 04/10/19 08:59 Lorazepam (Ativan 2mg/ml 1ml) 0.5 mg Q4H PRN IV For Anxiety 03/10/19 07:45 03/17/19 07:44 03/10/19 22:10 Methylprednisolone Sodium Succinate (Solu-MEDROL) 40 mg EVERY 12 HOURS IVP 03/10/19 21:00 04/09/19 11:59 03/10/19 21:00 Morphine Sulfate (Morphine Sulfate) 2 mg Q4H PRN IVP Severe Pain (Pain Scale 7-10) 03/10/19 07:45 03/17/19 07:44 Nitroglycerin (Ntg) 0.4 mg Q5MIN X 3 DOSES PRN SL Prn Chest Pain 03/10/19 08:00 04/09/19 07:59 Ondansetron HCl (Zofran) 4 mg Q6H PRN IVP Nausea & Vomiting 03/10/19 07:45 04/09/19 07:44 Pantoprazole (Protonix) 40 mg DAILY ORAL 03/11/19 09:00 04/10/19 08:59 Piperacillin Sod/ Tazobactam Sod 3.375 gm/Sodium Chloride 110 ml @ 27.5 mls/hr EVERY 12 HOURS IVPB 03/10/19 09:00 03/15/19 08:59 03/10/19 20:58 Promethazine HCl/ Codeine (Phenergan with Codeine) 5 ml Q6H PRN ORAL cough 03/10/19 07:45 04/09/19 07:44 Temazepam (Restoril) 15 mg HSPRN PRN ORAL Insomnia 03/10/19 21:00 03/17/19 20:59 Theophylline (Zhao-Dur) 100 mg EVERY 12 HOURS ORAL 03/10/19 09:00 04/09/19 08:59 03/10/19 20:59 Corazon Kumar [employer] Mar 11, 2019 07:57
[2019-03-11 08:00] VITALS: BP 153/73
[2019-03-11] MEDS ORDERED: Aspirin EC 81mg tab ORAL SCH (09:00)
[2019-03-11] MEDS ORDERED: Imdur 30mg tab ORAL SCH (09:00)
[2019-03-11] MEDS: Heparin 5000 units/ml inj SUBQ SCH ×2 (09:00→20:41)
[2019-03-11 09:12] VITALS: BP 153/73
--- NOTE | 2019-03-11 09:20 | NUR ---
NURSE NOTES: GOLDY Kumar at nurse station, made aware that per son patient takes flomax, aspirin, and citalopram of unknown dosages and frequency. GOLDY Kumar acknowledged per CARPENTER'S ASSISTANT enter medications in medication reconciliation. Entered medications in medication reconciliation as instructed. Noted. Will continue to monitor patient.
[2019-03-11] MEDS: Theophylline ER 100mg ORAL SCH ×2 (09:27→20:42)
[2019-03-11] MEDS: Solu-MEDROL 40mg Inj IVP SCH (09:27)
[2019-03-11] MEDS: Carvedilol 12.5mg tab ORAL SCH ×2 (09:27→20:42)
[2019-03-11] MEDS: HydrALAZINE 10mg Tab ORAL SCH ×2 (09:27→17:19)
[2019-03-11] MEDS: Zosyn 3.375gm q12h **Extended infusion IVPB SCH ×4 (09:30→20:43)
--- NOTE | 2019-03-11 09:38 | General Progress Note ---
Assessment/Plan Problem List: (1) SOB (shortness of breath) ICD Codes: R06.02 - Shortness of breath SNOMED: 114296867 (2) CHF (congestive heart failure) ICD Codes: I50.9 - Heart failure, unspecified SNOMED: 60972187 (3) LBBB (left bundle branch block) ICD Codes: I44.7 - Left bundle-branch block, unspecified SNOMED: 25165539 (4) Chest pain ICD Codes: R07.9 - Chest pain, unspecified SNOMED: 19912640 Status: unchanged Status Narrative o2 pulm tx prn pain control cardio f/u cbc bmp am Subjective Constitutional: Reports: weakness Allergies: Coded Allergies: No Known Allergies (Unverified , 03/10/19) All Systems: reviewed and negative except above Subjective calm in bed Objective Last 24 Hour Vital Signs Date Time Temp Pulse Resp B/P (MAP) Pulse Ox O2 Delivery O2 Flow Rate FiO2 03/11/19 09:27 153/73 03/11/19 09:27 73 153/73 03/11/19 09:27 153/73 03/11/19 09:00 Room Air 03/11/19 08:00 96.8 73 20 153/73 (99) 98 03/11/19 04:00 97.6 60 20 149/68 (95) 98 03/11/19 04:00 59 03/11/19 00:00 82 03/11/19 00:00 67 03/10/19 21:00 Room Air 03/10/19 20:59 77 141/72 03/10/19 20:00 82 03/10/19 20:00 85 20 97 Nasal Cannula 2.0 28 03/10/19 20:00 97.2 77 20 141/72 (95) 98 03/10/19 17:54 140/86 03/10/19 16:00 96.8 82 20 134/91 (105) 92 03/10/19 15:28 80 03/10/19 12:00 97.7 80 20 140/86 (104) 94 03/10/19 11:35 72 Intake and Output 03/10/19 03/11/19 18:59 06:59 Intake Total 360 ml 240 ml Output Total 1200 ml Balance -840 ml 240 ml Intake Oral 360 ml 240 ml Output Urine Total 1200 ml # Voids 3 # Bowel Movements 1 Laboratory Tests 03/11/19 04:07: White Blood Count 11.8H, Red Blood Count 4.93, Hemoglobin 14.6, Hematocrit 44.8 , Mean Corpuscular Volume 91, Mean Corpuscular Hemoglobin 29.6, Mean Corpuscular Hemoglobin Concent 32.6, Red Cell Distribution Width 12.9, Platelet Count 208, Mean Platelet Volume 6.4L, Neutrophils (%) (Auto) , Lymphocytes (%) ( Auto) , Monocytes (%) (Auto) , Eosinophils (%) (Auto) , Basophils (%) (Auto) , Differential Total Cells Counted 100, Neutrophils % (Manual) 92H, Lymphocytes % (Manual) 6L, Monocytes % (Manual) 2, Eosinophils % (Manual) 0, Basophils % ( Manual) 0, Band Neutrophils 0, Platelet Estimate Adequate, Platelet Morphology Normal, Red Blood Cell Morphology Normal, Sodium Level 139, Potassium Level 4.0 , Chloride Level 104, Carbon Dioxide Level 27, Anion Gap 8, Blood Urea Nitrogen 41H, Creatinine 1.6H, Estimat Glomerular Filtration Rate , Glucose Level 174H, Calcium Level 9.0, Total Bilirubin 0.6, Aspartate Amino Transf (AST/SGOT) 27, Alanine Aminotransferase (ALT/SGPT) 18, Alkaline Phosphatase 65, Troponin I 0.032, Pro-B-Type Natriuretic Peptide 4594H, Total Protein 7.2, Albumin 3.5, Globulin 3.7, Albumin/Globulin Ratio 0.9L, Triglycerides Level 64, Cholesterol Level 251H, LDL Cholesterol 170H, HDL Cholesterol 64H, Cholesterol/HDL Ratio 3.9 Height (Feet): 5 Height (Inches): 9.00 Weight (Pounds): 193 General Appearance: lethargic EENT: normal ENT inspection Neck: normal alignment Cardiovascular: normal peripheral pulses, normal rate, regular rhythm Respiratory/Chest: chest wall non-tender, lungs clear, normal breath sounds Abdomen: normal bowel sounds, non tender, soft Extremities: normal inspection Edema: no edema noted Arm (L), no edema noted Arm (R), no edema noted Leg (L), no edema noted Leg (R), no edema noted Pedal (L), no edema noted Pedal (R), no edema noted Generalized Neurologic: responsive, motor weakness Skin: normal pigmentation, warm/dry Jessee Garcia DO Mar 11, 2019 09:38
--- NOTE | 2019-03-11 10:00 | NUR ---
NURSE NOTES: Patient seen by physical therapist. Patient tolerated activity with no s/sx of SOB, breathing is even and unlabored. Will continue to monitor patient.
[2019-03-11] MEDS ORDERED: CITALOPRAM10 MG/5 M1 (10:53)
[2019-03-11] MEDS ORDERED: FLOMAX0.4 MG (10:53)
[2019-03-11] MEDS ORDERED: ASPIRIN81 M3 (10:53)
--- NOTE | 2019-03-11 11:46 | Diagnostic Imaging Report ---
Indication: Dyspnea Comparison: 03/10/2019 A single view chest radiograph was obtained. Findings: Pulmonary vascular congestion significantly improved since the prior study. Heart remains enlarged. Lung volumes are low bilaterally. IMPRESSION: Interval improvement in pulmonary vascular congestion
[2019-03-11 12:00] VITALS: BP 121/56
--- NOTE | 2019-03-11 12:56 | Cardiac Electrophysiology PN ---
Assessment/Plan Assessment/Plan 1. Chest pain. Has left bundle-branch block, he was already ruled out for myocardial infarction with serial cardiac enzymes. This is likely due to the patient's congestive heart failure. 2. Congestive heart failure. BNP of more than 2000 and ejection fraction of only 25%. The patient also has complete left bundle-branch block. This patient would need transfer for cardiac catheterization for further evaluation of his coronaries. [place] Coreg, Lasix, hydralazine, and nitrate. Hold off on ACEI/ARB in view of renal failure with creatinine of 1.6. 3. Renal failure. Creatinine 1.6. 4. COPD, on Solu-Medrol and antibiotics. 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 Cardiac catheterization will be done after the patient is more stabilized. MALENA RN Subjective Subjective Diuresing well. No CP or SOB Objective Last 24 Hour Vital Signs Date Time Temp Pulse Resp B/P (MAP) Pulse Ox O2 Delivery O2 Flow Rate FiO2 03/11/19 12:00 97.6 67 20 121/56 (77) 98 03/11/19 09:27 153/73 03/11/19 09:27 73 153/73 03/11/19 09:27 153/73 03/11/19 09:00 Room Air 03/11/19 08:00 96.8 73 20 153/73 (99) 98 03/11/19 08:00 63 03/11/19 04:00 97.6 60 20 149/68 (95) 98 03/11/19 04:00 59 03/11/19 00:00 82 03/11/19 00:00 67 03/10/19 21:00 Room Air 03/10/19 20:59 77 141/72 03/10/19 20:00 82 03/10/19 20:00 85 20 97 Nasal Cannula 2.0 28 03/10/19 20:00 97.2 77 20 141/72 (95) 98 03/10/19 17:54 140/86 03/10/19 16:00 96.8 82 20 134/91 (105) 92 03/10/19 15:28 80 Intake and Output 03/10/19 03/11/19 19:00 07:00 Intake Total 360 ml 240 ml Output Total 1200 ml Balance -840 ml 240 ml Intake Oral 360 ml 240 ml Output Urine Total 1200 ml # Voids 3 # Bowel Movements 1 Laboratory Tests Test 03/11/19 04:07 White Blood Count 11.8 K/UL (4.8-10.8) H Red Blood Count 4.93 M/UL (4.70-6.10) Hemoglobin 14.6 G/DL (14.2-18.0) Hematocrit 44.8 % (42.0-52.0) Mean Corpuscular Volume 91 FL (80-99) Mean Corpuscular Hemoglobin 29.6 PG (27.0-31.0) Mean Corpuscular Hemoglobin Concent 32.6 G/DL (32.0-36.0) Red Cell Distribution Width 12.9 % (11.6-14.8) Platelet Count 208 K/UL (150-450) Mean Platelet Volume 6.4 FL (6.5-10.1) L Neutrophils (%) (Auto) % (45.0-75.0) Lymphocytes (%) (Auto) % (20.0-45.0) Monocytes (%) (Auto) % (1.0-10.0) Eosinophils (%) (Auto) % (0.0-3.0) Basophils (%) (Auto) % (0.0-2.0) Differential Total Cells Counted 100 Neutrophils % (Manual) 92 % (45-75) H Lymphocytes % (Manual) 6 % (20-45) L Monocytes % (Manual) 2 % (1-10) Eosinophils % (Manual) 0 % (0-3) Basophils % (Manual) 0 % (0-2) Band Neutrophils 0 % (0-8) Platelet Estimate Adequate Platelet Morphology Normal Red Blood Cell Morphology Normal Sodium Level 139 MMOL/L (136-145) Potassium Level 4.0 MMOL/L (3.5-5.1) Chloride Level 104 MMOL/L (98-107) Carbon Dioxide Level 27 MMOL/L (21-32) Anion Gap 8 mmol/L (5-15) Blood Urea Nitrogen 41 mg/dL (7-18) H Creatinine 1.6 MG/DL (0.55-1.30) H Estimat Glomerular Filtration Rate mL/min (>60) Glucose Level 174 MG/DL (74-106) H Calcium Level 9.0 MG/DL (8.5-10.1) Total Bilirubin 0.6 MG/DL (0.2-1.0) Aspartate Amino Transf (AST/SGOT) 27 U/L (15-37) Alanine Aminotransferase (ALT/SGPT) 18 U/L (12-78) Alkaline Phosphatase 65 U/L (46-116) Troponin I 0.032 ng/mL (0.000-0.056) Pro-B-Type Natriuretic Peptide 4594 pg/mL (0-125) H Total Protein 7.2 G/DL (6.4-8.2) Albumin 3.5 G/DL (3.4-5.0) Globulin 3.7 g/dL Albumin/Globulin Ratio 0.9 (1.0-2.7) L Triglycerides Level 64 MG/DL (30-150) Cholesterol Level 251 MG/DL (< 200) H LDL Cholesterol 170 mg/dL (<100) H HDL Cholesterol 64 MG/DL (40-60) H Cholesterol/HDL Ratio 3.9 (3.3-4.4) Objective HEAD AND NECK: Shows positive JVD. LUNGS: Showed decreased breath sounds. CARDIOVASCULAR: Shows regular S1 and S2 with no gallop with 2/6 systolic murmur. ABDOMEN: Soft. EXTREMITIES: 2+ pitting edema. Eric Dotson MD Mar 11, 2019 12:56
--- NOTE | 2019-03-11 14:34 | NUR ---
P.T NOTE: P.T EVALUATION COMPLETED AND TREATMENT INITIATED. PLEASE REFER TO P.T EVALUATION FOR CURRENT FUNCTIONAL STATUS. PATIENT IS ALERT, ORIENTED TO SELF/PERSON BUT NOT TO PLACE ( PATIENT THINKS HE IS IN A CRUISE SHIP), TIME AND SITUATION. PATIENT STATED HE HAS 3 CHILDREN BUT HAS FORGOTTEN THEIR NAMES. PATIENT IS PLEASANTLY CONFUSED HOWEVER FOLLOWS COMMANDS APPROPRIATELY. PATIENT PRESENTED GENERALIZED WEAKNESS AFFECTING BALANCE AND FUNCTIONAL MOBILITY INDEPENDENCE AND SAFETY. PATIENT CURRENTLY REQUIRES CGA X 1 FOR BED MOBILITIES, TRANSFERS AND GAIT/AMBULATION ACTIVITIES. SKILLED P.T SERVICE IS WARRANTED TO IMPROVE STRENGTH BALANCE AND ENDURANCE.PATIENT IS NOT SAFE TO GO HOME ALONE DUE TO COGNITIVE ISSUE. RECOMMEND SNF FOR FURTHER REHAB OR HOME WITH P.T AND 24 HR SUPERVISION . THANK YOU FOR THIS REFERRAL.
--- NOTE | 2019-03-11 15:58 | NUR ---
NURSE NOTES: Per Dr. Dotson's instructions to inform patient's son, Arnulfo Han, that patient may have to be transferred to a different facility for a possible cardiac procedure and that for patient's son to call Dr. Turcios's office, telephone number given to son , to have questions answered. Patient's son verbalized understanding. Noted. Will continue to monitor patient.
[2019-03-11 16:00] VITALS: BP 120/52
--- NOTE | 2019-03-11 19:23 | NUR ---
HAND-OFF: Report given to BHAVESH Mauro.
--- NOTE | 2019-03-11 19:48 | NUR ---
NURSE NOTES: PATIENT ALERT, ORIENTED X2 CONFUSED TO TIME AND SITUATION AT THIS TIME, DENIED PAIN OR SOB, RESPIRATION REGULAR ON ROOM AIR O2 SATURATION 97% NOTED, ABDOMEN SOFT, PERIPHERAL LINE TO RIGHT WRIST INTACT, INFORMED PATIENT REGARDING FALL PRECAUTION AND HOW TO USE CALL LIGHT THAT NEED MORE EDUCATION. MADE LOWER BED POSITION, SIDE RAILS UP X2 FOR SAFETY, PROVIDED CALL LIGHT WITHIN REACH, WILL CONTINUE TO MONITOR.
[2019-03-11 20:00] VITALS: BP 118/58
[2019-03-11] MEDS ORDERED: Tamsulosin 0.4mg cap ORAL SCH (21:00)
--- NOTE | 2019-03-11 22:21 | NUR ---
NURSE NOTES: PATIENT DISORIENTED, TRIED TO GO RESTROOM WITHOUT CALL LIGHT, GIVEN REDIRECTION THAT CALL LIGHT BEFORE OUT OF BED BUT NEED REINFORCEMENT, WILL CONTINUE TO MONITOR.
[2019-03-12] VITALS: BP 144/63
--- NOTE | 2019-03-12 00:09 | NUR ---
NURSE NOTES: PATIENT DENIED CHEST PAIN OR SOB AT THIS TIME, WILL CONTINUE PLAN OF CARE.
--- NOTE | 2019-03-12 02:00 | NUR ---
NURSE NOTES: PATIENT ASLEEP STATUS.
--- NOTE | 2019-03-12 02:45 | NUR ---
NURSE NOTES: Patient transferred from SDU via [facility] by BHAVESH Goff .Patient in stable condition,AOx1,able to make needs known to a degree, denies pain at this time.Checked belongings with transferring RN. Oriented patient to room and surroundings.Bed lowest position, brakes on,call light within reach,will continue to monitor and reassess
--- NOTE | 2019-03-12 02:50 | NUR ---
TRANSFER TO FLOOR: Patient transferred to TELE ROOM 202-2 via hospital bed, no acute distress noted while transfer. Report given to BHAVESH JACKMAN. Belongings and medications given to BHAVESH JACKMAN.
[2019-03-12] MEDS ORDERED: Nitroglycerin Subl 0.4mg tab SL PRN (03:15)
[2019-03-12] MEDS ORDERED: Albuterol/Ipratropium 3ml neb HHN PRN (03:45)
[2019-03-12] MEDS ORDERED: LORazepam Inj 2mg/ml 1ml IV PRN (03:45)
[2019-03-12] MEDS ORDERED: Morphine Sulfate 2mg/ml Inj(IV/IM USE ONLY) IVP PRN (03:45)
[2019-03-12 04:00] VITALS: BP 132/58
[2019-03-12 06:47] LABS: ANION GAP 6 mmol/L (5-15); BLOOD UREA NITROGEN 44 mg/dL (7-18); CARBON DIOXIDE 31 MMOL/L (21-32); CHLORIDE 104 MMOL/L (98-107); CREATININE 1.8 MG/DL (0.55-1.30); POTASSIUM 4.1 MMOL/L (3.5-5.1); SODIUM 141 MMOL/L (136-145)
[2019-03-12 06:48] LABS: BASOPHILS % (AUTO) 0.4 % (0.0-2.0); EOSINOPHILS % (AUTO) 0.1 % (0.0-3.0); HEMATOCRIT 42.7 % (42.0-52.0); HEMOGLOBIN 13.9 G/DL (14.2-18.0); LYMPHOCYTES % (AUTO) 11.7 % (20.0-45.0); MEAN CORPUSCULAR VOLUME 91 FL (80-99); MONOCYTES % (AUTO) 8.4 % (1.0-10.0); NEUTROPHILS % (AUTO) 79.3 % (45.0-75.0); PLATELET COUNT 221 K/UL (150-450); RED BLOOD COUNT 4.68 M/UL (4.70-6.10); RED CELL DISTRIBUTION WIDTH 13.3 % (11.6-14.8); WHITE BLOOD COUNT 12.3 K/UL (4.8-10.8)
--- NOTE | 2019-03-12 07:30 | NUR ---
HAND-OFF: Report given to BHAVESH Rose,patient in stable condition, plan of care endorsed.
[2019-03-12] MEDS ORDERED: Promethazine/Codeine 5ml UD ORAL PRN (07:45)
[2019-03-12 08:00] VITALS: BP 144/69
--- NOTE | 2019-03-12 08:00 | NUR ---
NURSE NOTES: received pt in the bed, awake, alert, confused, vital signs stable, no co pain, no SOB, skin warm and dry to touch, intact, tolerate diet well, bed in low position, call light within reach.
[2019-03-12] MEDS ORDERED: Piperacillin/Tazobactam 3.375 GM in NS 110 ML IVPB SCH (09:00)
[2019-03-12] MEDS: HydrALAZINE 10mg Tab ORAL SCH ×2 (09:00→17:53)
[2019-03-12] MEDS ORDERED: Carvedilol 12.5mg tab ORAL SCH (09:00)
[2019-03-12] MEDS ORDERED: Imdur 30mg tab ORAL SCH (09:00)
[2019-03-12] MEDS ORDERED: Theophylline ER 100mg ORAL SCH (09:00)
[2019-03-12] MEDS ORDERED: Aspirin EC 81mg tab ORAL SCH (09:00)
[2019-03-12] MEDS ORDERED: Heparin 5000 units/ml inj SUBQ SCH (09:00)
[2019-03-12] MEDS ORDERED: Solu-MEDROL 40mg Inj IVP SCH ×2 (09:00)
--- NOTE | 2019-03-12 09:30 | General Progress Note ---
Assessment/Plan Problem List: (1) SOB (shortness of breath) ICD Codes: R06.02 - Shortness of breath SNOMED: 070923044 (2) CHF (congestive heart failure) ICD Codes: I50.9 - Heart failure, unspecified SNOMED: 26783003 (3) LBBB (left bundle branch block) ICD Codes: I44.7 - Left bundle-branch block, unspecified SNOMED: 16204205 (4) Chest pain ICD Codes: R07.9 - Chest pain, unspecified SNOMED: 94362104 Status: stable, progressing Assessment/Plan: pt eiet o2 pulm tx cardio pulm f/u cbc bmp am Subjective Constitutional: Reports: weakness Allergies: Coded Allergies: No Known Allergies (Unverified , 03/10/19) All Systems: reviewed and negative except above Subjective calm in bed Objective Last 24 Hour Vital Signs Date Time Temp Pulse Resp B/P (MAP) Pulse Ox O2 Delivery O2 Flow Rate FiO2 03/12/19 09:00 144/69 03/12/19 09:00 144/69 03/12/19 09:00 61 144/69 03/12/19 08:00 98.6 61 18 144/69 (94) 95 03/12/19 04:00 48 03/12/19 04:00 97.5 53 20 132/58 (82) 98 03/12/19 00:00 Room Air 03/12/19 00:00 97.0 56 20 144/63 (90) 98 03/11/19 23:25 66 03/11/19 21:00 Room Air 03/11/19 20:42 77 118/58 03/11/19 20:00 97.3 77 20 118/58 (78) 97 03/11/19 19:24 79 03/11/19 19:17 76 20 96 Nasal Cannula 2.0 28 03/11/19 17:19 120/52 03/11/19 16:00 97.7 57 20 120/52 (74) 95 03/11/19 16:00 65 03/11/19 12:00 97.6 67 20 121/56 (77) 98 03/11/19 12:00 74 Intake and Output 03/11/19 03/12/19 19:00 07:00 Intake Total 600 ml 110.0 ml Output Total 600 ml Balance 0 ml 110.0 ml Intake Oral 600 ml IV Total 110.0 ml Output Urine Total 600 ml # Voids 5 1 # Bowel Movements 1 Laboratory Tests 03/12/19 06:10: White Blood Count 12.3H, Red Blood Count 4.68L, Hemoglobin 13.9L, Hematocrit 42.7, Mean Corpuscular Volume 91, Mean Corpuscular Hemoglobin 29.7, Mean Corpuscular Hemoglobin Concent 32.5, Red Cell Distribution Width 13.3, Platelet Count 221, Mean Platelet Volume 7.0, Neutrophils (%) (Auto) 79.3H, Lymphocytes ( %) (Auto) 11.7L, Monocytes (%) (Auto) 8.4, Eosinophils (%) (Auto) 0.1, Basophils (%) (Auto) 0.4, Sodium Level 141, Potassium Level 4.1, Chloride Level 104, Carbon Dioxide Level 31, Anion Gap 6, Blood Urea Nitrogen 44H, Creatinine 1.8H, Estimat Glomerular Filtration Rate , Glucose Level 118H, Calcium Level 9.0 Height (Feet): 5 Height (Inches): 9.00 Weight (Pounds): 193 General Appearance: lethargic EENT: normal ENT inspection Neck: normal alignment Cardiovascular: normal peripheral pulses, normal rate, regular rhythm Respiratory/Chest: chest wall non-tender, lungs clear, normal breath sounds Abdomen: normal bowel sounds, non tender, soft Extremities: normal inspection Edema: no edema noted Arm (L), no edema noted Arm (R), no edema noted Leg (L), no edema noted Leg (R), no edema noted Pedal (L), no edema noted Pedal (R), no edema noted Generalized Neurologic: motor weakness Skin: normal pigmentation, warm/dry Jessee Garcia DO Mar 12, 2019 09:30
[2019-03-12 12:00] VITALS: BP 105/45
--- NOTE | 2019-03-12 12:35 | Diagnostic Imaging Report ---
Indication: Shortness of breath Technique: One view of the chest Comparison: 03/11/2019 Findings: There is decreased atelectasis at the left lung base. There is minimal residual left perihilar atelectasis. Lungs and pleural spaces are otherwise clear. The heart is borderline enlarged. Impression: Minimal left perihilar atelectasis. No acute process otherwise.
--- NOTE | 2019-03-12 13:17 | Pulmonology Progress Note ---
Assessment/Plan Problems: (1) Acute respiratory failure (2) Acute on chronic systolic (congestive) heart failure (3) EF 25% (4) COPD (chronic obstructive pulmonary disease) (5) ATN (acute tubular necrosis) (6) HTN (hypertension) (7) LBBB (left bundle branch block) Assessment/Plan CXR reviewed, pulmonary edema totally resolved hold lasix b/o increasing bun/creatinine Resume laxis once renal function more stable. respiratory treatment stop steroids continue Theophyline f/u cardiology recommendations. Subjective ROS Limited/Unobtainable: No Constitutional: Reports: no symptoms HEENT: Repors: no symptoms Respiratory: Reports: no symptoms Allergies: Coded Allergies: No Known Allergies (Unverified , 03/10/19) Objective Last 24 Hour Vital Signs Date Time Temp Pulse Resp B/P (MAP) Pulse Ox O2 Delivery O2 Flow Rate FiO2 03/12/19 12:00 97.5 65 18 105/45 (65) 94 03/12/19 12:00 64 03/12/19 09:26 80 20 97 Room Air 21 03/12/19 09:00 Room Air 03/12/19 09:00 144/69 03/12/19 09:00 144/69 03/12/19 09:00 61 144/69 03/12/19 08:00 83 03/12/19 08:00 98.6 61 18 144/69 (94) 95 03/12/19 04:00 48 03/12/19 04:00 97.5 53 20 132/58 (82) 98 03/12/19 00:00 Room Air 03/12/19 00:00 97.0 56 20 144/63 (90) 98 03/11/19 23:25 66 03/11/19 21:00 Room Air 03/11/19 20:42 77 118/58 03/11/19 20:00 97.3 77 20 118/58 (78) 97 03/11/19 19:24 79 03/11/19 19:17 76 20 96 Nasal Cannula 2.0 28 03/11/19 17:19 120/52 03/11/19 16:00 97.7 57 20 120/52 (74) 95 03/11/19 16:00 65 Intake and Output 03/11/19 03/12/19 19:00 07:00 Intake Total 600 ml 110.0 ml Output Total 600 ml Balance 0 ml 110.0 ml Intake Oral 600 ml IV Total 110.0 ml Output Urine Total 600 ml # Voids 5 1 # Bowel Movements 1 General Appearance: WD/WN HEENT: normocephalic, anicteric Respiratory/Chest: chest wall non-tender, normal breath sounds Cardiovascular: normal peripheral pulses, regularly irregular Abdomen: normal bowel sounds, soft, non tender Neurologic/Psychiatric: cable wirer II-XII grossly normal Lymphatic: no neck adenopathy Microbiology Date/Time Source Procedure Growth Status 03/10/19 00:00 Sputum Gram Stain - Final Resulted 03/10/19 00:00 Sputum Sputum Culture - Preliminary NORMAL UPPER RESPIRATORY JAYLYN PRESENT Resulted Laboratory Tests 03/12/19 06:10: White Blood Count 12.3H, Red Blood Count 4.68L, Hemoglobin 13.9L, Hematocrit 42.7, Mean Corpuscular Volume 91, Mean Corpuscular Hemoglobin 29.7, Mean Corpuscular Hemoglobin Concent 32.5, Red Cell Distribution Width 13.3, Platelet Count 221, Mean Platelet Volume 7.0, Neutrophils (%) (Auto) 79.3H, Lymphocytes ( %) (Auto) 11.7L, Monocytes (%) (Auto) 8.4, Eosinophils (%) (Auto) 0.1, Basophils (%) (Auto) 0.4, Sodium Level 141, Potassium Level 4.1, Chloride Level 104, Carbon Dioxide Level 31, Anion Gap 6, Blood Urea Nitrogen 44H, Creatinine 1.8H, Estimat Glomerular Filtration Rate , Glucose Level 118H, Uric Acid [ Pending], Calcium Level 9.0, Total Creatine Kinase [Pending] Current Medications Medications (Trade) Dose Ordered Sig/Barbara Route PRN Reason Start Time Stop Time Status Last Admin Dose Admin Albuterol/ Ipratropium (Albuterol/ Ipratropium) 3 ml Q4H PRN HHN dyspnea 03/12/19 03:45 03/15/19 07:44 Aspirin (Ecotrin) 81 mg DAILY ORAL 03/12/19 09:00 04/10/19 08:59 03/12/19 08:59 Carvedilol (Coreg) 12.5 mg EVERY 12 HOURS ORAL 03/12/19 09:00 04/09/19 20:59 03/12/19 09:00 Dextrose (Dextrose 50%) 25 ml Q30M PRN IV Hypoglycemia 03/12/19 03:15 04/09/19 07:44 Dextrose (Dextrose 50%) 50 ml Q30M PRN IV Hypoglycemia 03/12/19 03:15 04/09/19 07:44 Furosemide (Lasix) 40 mg EVERY 12 HOURS IV 03/12/19 09:00 04/09/19 20:59 03/12/19 08:59 Heparin Sodium (Porcine) (Heparin 5000 units/ml) 5,000 units EVERY 12 HOURS SUBQ 03/12/19 09:00 04/09/19 08:59 03/12/19 09:02 Hydralazine HCl (Apresoline) 10 mg BID ORAL 03/12/19 09:00 04/09/19 17:59 03/12/19 09:00 Isosorbide Mononitrate (Imdur) 30 mg DAILY ORAL 03/12/19 09:00 04/10/19 08:59 03/12/19 09:00 Lorazepam (Ativan 2mg/ml 1ml) 0.5 mg Q4H PRN IV For Anxiety 03/12/19 03:45 03/17/19 07:44 Methylprednisolone Sodium Succinate (Solu-MEDROL) 40 mg DAILY IVP 03/12/19 09:00 04/09/19 11:59 03/12/19 08:57 Morphine Sulfate (Morphine Sulfate) 2 mg Q4H PRN IVP Severe Pain (Pain Scale 7-10) 03/12/19 03:45 03/17/19 07:44 Nitroglycerin (Ntg) 0.4 mg Q5MIN X 3 DOSES PRN SL Prn Chest Pain 03/12/19 03:15 04/09/19 07:59 Ondansetron HCl (Zofran) 4 mg Q6H PRN IVP Nausea & Vomiting 03/12/19 07:45 04/09/19 07:44 Pantoprazole (Protonix) 40 mg DAILY ORAL 03/12/19 09:00 04/10/19 08:59 03/12/19 08:59 Piperacillin Sod/ Tazobactam Sod 3.375 gm/Sodium Chloride 110 ml @ 27.5 mls/hr EVERY 12 HOURS IVPB 03/12/19 09:00 03/15/19 08:59 03/12/19 09:02 Promethazine HCl/ Codeine (Phenergan with Codeine) 5 ml Q6H PRN ORAL cough 03/12/19 07:45 04/09/19 07:44 Tamsulosin HCl (Flomax) 0.4 mg BEDTIME ORAL 03/12/19 21:00 04/10/19 20:59 Temazepam (Restoril) 15 mg HSPRN PRN ORAL Insomnia 03/12/19 21:00 03/17/19 20:59 Theophylline (Zhao-Dur) 100 mg EVERY 12 HOURS ORAL 03/12/19 09:00 04/09/19 08:59 03/12/19 08:59 Nati Jeff MD Mar 12, 2019 13:16
[2019-03-12 13:25] LABS: CREATINE KINASE 74 U/L (26-308)
[2019-03-12 15:24] LABS: APPEARANCE,URINE CLEAR; BILIRUBIN, URINE NEGATIVE (NEGATIVE); COLOR,URINE PALE YELLOW; GLUCOSE, URINE (UA) NEGATIVE (NEGATIVE); KETONES,URINE NEGATIVE (NEGATIVE); LEUKOCYTE ESTERASE ,URINE NEGATIVE (NEGATIVE); NITRITE,URINE NEGATIVE (NEGATIVE); PH,URINE 5 (4.5-8.0); PROTEIN,URINE NEGATIVE (NEGATIVE); UROBILINOGEN,URINE NORMAL MG/DL (0.0-1.0)
--- NOTE | 2019-03-12 15:51 | NUR ---
CASE MANAGEMENT:REVIEW 88 YR OLD MALE FROM HOME TO ER CC: SOB. MID STERNAL PAIN. AUDIBLE WHEEZING NOTED IN ER SI: CHEST PAIN. COPD 98.4 120 22 202/112 96% ON RA WBC+10.9 BUN+41 CR+1.6 BNP+4594 IS: PLACED ON 2L/NC DUONEB HHN IV SOLUMEDROL ASA PO NTG SL IV LASIX CHEST XRAY : TO TELEMETRY 03/12/19 SI: CHF W/EF 25%. COPD TRIFASCICULAR BLOCK W/FIRST DEGREE AV BLOCK AND COMPLETE LEFT BUNDLE -BRANCH BLOCK 97.5 65 18 105/45 94% ON RA BUN+44 CR+1.8 IS: IV ZOSYN Q12 ASA PO QD COREG PO Q12 IV LASIX Q12 HEPARIN SQ Q12 HYDRALAZINE PO BID IMDUR PO QD NATALIIA-DUR PO Q12 : TELEMETRY STATUS INTERQUAL CRITERIA MET
[2019-03-12 16:00] VITALS: BP 116/58
[2019-03-12 17:53] VITALS: BP 116/58
--- NOTE | 2019-03-12 18:43 | NUR ---
NURSE NOTES: pt has dementia, son CRISTOBAL ISABEL sign AMA, instruction given, if chest pain need go to EMERGENCY ROOM. I instructed son if any chest pain, pain to the left arm with radiation, GERD, N/V occur to call 911. Son came into the unit very nicely stated he wanted to take his dad home because he felt that the doctors were not doing enough for him here. IV removed, ID band removed. AMA signed.
--- NOTE | 2019-03-12 19:48 | Cardiology Report ---
APPROVED REPORT EXAM: Two-dimensional and M-mode echocardiogram with Doppler and color Doppler. INDICATION Chest Pain M-Mode DIMENSIONS IVSd1.2 (0.7-1.1cm)Left Atrium (MM)4.0 (1.6-4.0cm) LVDd4.7 (3.5-5.6cm)Aortic Root3.2 (2.0-3.7cm) PWd1.2 (0.7-1.1cm)Aortic Cusp Exc.2.0 (1.5-2.0cm) LVDs4.3 (2.5-4.0cm) PWs1.6 cm Normal left ventricular chamber size. Anteroseptal wall hypokinesia, septal wall akinesia, mid to apical anterolateral hypokinesia with overall LVEF at 35%. Ischemic cardiomyopathy cannot be excluded. High e/e' ratio is suggestive of increased intracardiac filling pressure. Mild left ventricular hypertrophy. No evidence of pericardial effusion. All other cardiac chamber sizes are within normal limits. Focal aortic valve sclerosis with adequate cusp excursion. Thickened mitral valve leaflets with normal excursion. Mitral annulus and aortic root calcification. Pulmonic valve not well visualized. Normal tricuspid valve structure. Subcostal views not obtainable. A color flow and spectral Doppler study was performed and revealed: Mild to moderate aortic regurgitation. Peak aortic valve gradient of 16 mmHg and a mean of 7 mmHg. Trace mitral regurgitation. Mitral diastolic velocities suggest pseudo-normal LV physiology (Grade I). Trace tricuspid regurgitation. Tricuspid systolic velocities suggests peak right ventricular systolic pressure of 24 mmHg. Trace pulmonic regurgitation present.
--- NOTE | 2019-03-12 20:36 | Cardiology Report ---
APPROVED REPORT EKG Measurement Heart [id number] Atrial tachycardia VPCs Left bundle branch block Abnormal ECG
[2019-03-12] MEDS ORDERED: Tamsulosin 0.4mg cap ORAL SCH (21:00)
--- NOTE | 2019-03-14 13:24 | Discharge Summary ---
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 Chest pain started about 1 hour prior to arrival to ED. Patient also reported increased nausea with chest tightness. Patient was unable to provide good history secondary to dementia. He denied history of CHF or heart attack in the past. Upon evaluation vital signs revealed tachycardia, tachypnea and severely elevated blood pressure 220/112. Pulse oximetry was stable on 2 L of oxygen via nasal cannula. Laboratory work-up revealed evidence of renal failure with BUN of 30 and creatinine 1.6. Troponin 0.006, Pro BNP 2113. EKG revealed sinus tachycardia with left bundle branch block. No leukocytosis, stable hemoglobin and hematocrit. Urinalysis revealed no evidence of UTI. Chest x-ray demonstrated evidence of congestive heart failure. Patient received aspirin and nitroglycerin in emergency department, nebulizing treatment with bronchodilator, 1 dose of Lasix and admitted to [facility] for further management. CONSULTANTS: vending technician Dr. Kessler pulmonary [facility]: Patient admitted to [facility]. Serial troponin were negative. EKG revealed no acute ischemic changes Patient was rule out for acute myocardial infarction. Patient started on aspirin and beta-robert. Microbiology Lab Manager followed. Echocardiogram revealed ejection fraction 35% and global left ventricular hypokinesis. Guideline directed medical therapy for congestive heart failure provided with beta-robert, Lasix, hydralazine, and nitrate. EVELINA inhibitor/ARB were hold due to JANELLE. Blood pressure was managed with current regimen. Lipid panel revealed hypercholesterolemia. Statin was added to current medication regimen. Microbiology Lab Manager recommended transfer for cardiac catheterization for further evaluation of coronary arteries. Supplemental oxygen titrated to keep pulse oximetry above 92%. Pulmonary toilet via handheld nebulizing therapy with bronchodilator provided. Patient started on low-dose IV steroid with tapering. Empiric antibiotics provided for possible pneumonia. Antitussive provided as needed. Trial of theophylline started. Sputum culture revealed yeast. Follow-up chest x-ray revealed improvement of pulmonary vascular congestion. DVT and GI prophylaxis provided. Renal parameters and electrolytes were closely monitored. Electrolytes corrected as needed. Nephrotoxins were avoided. Renal ultrasound revealed no evidence of hydronephrosis , normal bilateral kidney echogenicity. Patient's son arrived on and decided to take his father home. The risks and consequences of signing AGAINST MEDICAL ADVICE were discussed with patient's son in detail. Patient's son verbalized understanding, nevertheless signed AMA form and left. Patient's son was instructed on return to ED precaution if chest pain recurs. 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
== END 2019-03-12 18:44 | disposition left against medical advice (07) | DRG 291 ==
LOC: EMR 02:58 → 2W 03:23 → EDBEDREQ 06:02 → 2W 08:29 → 2E 03-12 02:43
DX: I11.0 Hypertensive heart disease with heart failure (principal); N17.0 Acute kidney failure with tubular necrosis; J44.1 Chronic obstructive pulmonary disease with (acute) exacerbation; I45.3 Trifascicular block; I50.23 Acute on chronic systolic (congestive) heart failure; I16.0 Hypertensive urgency; I50.9 Heart failure, unspecified; Z79.82 Long term (current) use of aspirin; E78.00 Pure hypercholesterolemia, unspecified; I44.7 Left bundle-branch block, unspecified; I09.1 Rheumatic diseases of endocardium, valve unspecified
CPT/HCPCS: 36415; 71045; 76770; 80048; 80053; 80061; 81001; 82043; 82550; 82553; 83690; 83880; 83935; 84300; 84484; 84550; 85007; 85025; 87070; 87205; 89050; 93005; 93306; 94640; 94664; 96374; 99285; J7620